=== PATIENT | male | born 1995 | race Caucasian/White ===

== ENCOUNTER 2022-10-15 14:19 | Emergency (ER) | payer OTHER, SELFPAY ==
[2022-10-15 14:58] VITALS: BP 123/74; PULSE 66; RESP 16; TEMP 36.7; O2SAT 96; BMI 26.6
--- NOTE | 2022-10-15 16:40 | ED.SOB ---
HPI - SOB/Dyspnea General Date Seen: 10/15/22 Chief Complaint: Shortness of Breath/Dyspnea Stated Complaint: Short of Breath Mucus in Lungs Time Seen by Provider: 10/15/22 15:50 Source: patient Mode of arrival: ambulatory Limitations: no limitations History of Present Illness HPI Narrative: Patient is the 27-year-old gentleman who presents to the emergency room for evaluation of cough, some wheezing in the morning. He feels that his mucus is increase then, he will be wheezing for few hours, he does not notice any shortness of breath, denies chest pain, leg swelling, passing out, or anything else. He has had no fevers or chills, and declined swabs according to the nurse. He has had his flu shot this year, and COVID shots. Immunizations are otherwise up-to-date, he has received an inhaler in the past he believes albuterol that helped a lot, and is just requesting that here today. This concern is been going on for at least 2-3 weeks. MD elicited complaint: shortness of breath and cough Pertinent past history: asthma Onset (ago): day(s) Timing: intermittent Severity: mild Associated symptoms: denies other symptoms Treatment prior to arrival: none Related Data Home oxygen amount: none Previous Rx's Medication Instructions Recorded albuterol sulfate 90 mcg/actuation 2 puff inhalation Q6H PRN 10/15/22 aerosol inhaler shortness of breath or wheezing #6.7 grams Allergies Allergy/AdvReac Type Severity Reaction Status Date / Time No Known Drug Allergies Allergy Verified 10/15/22 15:02 Review of Systems Status of ROS: Reports: 10 or more systems reviewed and unremarkable except as noted in History and below PFSH PFS Social History Smoking Status: Never smoker Do you use any of these nicotine containing products: Vaping Products Second hand tobacco smoke exposure: No How often do you have a drink containing alcohol: monthly or less How many standard drinks containing alcohol do you have on a typical day: 1 or 2 How often do you have six or more drinks on one occasion: Never AUDIT-C Alcohol total score: 1 Non-prescribed substance use: denies use Exam Narrative: Exam Narrative: Patient is seen in room 7 he is in no apparent distress his vital signs are reviewed and normal nontoxic, speaking to me in full sentences. Pupils equal round reactive to light there is no scleral icterus or redness noted, TMs are normal, oropharynx is normal nasal mucosa healthy, no lymphadenopathy anterior posterior chains of his neck, no meningismus, chest is good air entry in with no wheezing or crackles noted but on forced expiration he does have a few wheezes noted. Heart sounds are normal, no clicks murmurs or gallops S1-S2 is normal. Abdomen is soft and slightly obese, he has no organomegaly normal bowel sounds no tenderness to palpation skin reveals no petechiae or rashes neurologically intact in his upper lower extremities moving all extremities independently and well. Const: Vital Signs, click to edit/add: Vital Signs - 24 hr 10/15/22 14:58 Temperature 98.0 F Pulse Rate [Right Pulse Oximeter] 66 Respiratory Rate 16 Blood Pressure [Ri ght Upper Arm] 123/74 Pulse Oximetry 96 Course Course Hospital Course: Patient is seen in the ER, he is in no apparent distress he has normal vital signs with the low normal oxygen saturation. I think at the present time can use the albuterol MDI, that he has used in the past, I went over with him the risks benefits and side effects of worsening, he should follow up if these occur, he was more than happy with this. I do not think he needs further testing for any the viral etiologies currently is he really has no other symptoms. Vital Signs Vital signs: Initial Vital Signs Temperature 98.0 F 10/15/22 14:58 Temperature Source Temporal Artery Scan 10/15/22 14:58 Pulse Rate 66 10/15/22 14:58 Respiratory Rate 16 10/15/22 14:58 Blood Pressure 123/74 10/15/22 14:58 Blood Pressure Mean 90 10/15/22 14:58 Blood Pressure Position Sitting 10/15/22 14:58 Pulse Oximetry 96 10/15/22 14:58 Vital Signs Temperature 98.0 F 10/15/22 14:58 Pulse Rate 66 10/15/22 14:58 Respiratory Rate 16 10/15/22 14:58 Blood Pressure 123/74 10/15/22 14:58 Pulse Oximetry 96 10/15/22 14:58 Temperature 98.0 F 10/15/22 14:58 Pulse Rate 66 10/15/22 14:58 Respiratory Rate 16 10/15/22 14:58 Blood Pressure 123/74 10/15/22 14:58 Pulse Oximetry 96 10/15/22 14:58 MDM - SOB/Dyspnea MDM Narrative Medical decision making narrative: Life-threatening differential diagnosis includes occluded COPD exacerbation, pulmonary edema, acute coronary syndromes, pulmonary embolism, pneumonia, and pneumothorax. Other differential diagnosis considerations include asthma, bronchitis as well as other etiologies Medical Records Attestation: I reviewed the patient's medical records. Discharge Plan Discharge Clinical Impression: Wheezy Patient Disposition: Home, Self-Care Condition: Stable Instructions: Wheezing (ED) Additional Instructions: Home rest use of inhaler as needed, follow-up primary care, return if worsening shortness of breath signs and symptoms discussed. Prescriptions: New albuterol sulfate 90 mcg/actuation HFA aerosol inhaler 2 puff inhalation Q6H PRN (Reason: shortness of breath or wheezing) Qty: 6.7 0RF Follow Up/Referrals: Provider,Not a Local [Primary Care Provider] - Stand Alone Forms: [employer] Info Instructions
[2022-10-15 16:47] VITALS: BP 123/74; PULSE 66; RESP 16; TEMP 36.7
== END 2022-10-15 16:47 | disposition home or self-care (01) ==
PROVIDERS: Emergency Provider Family Medicine
DX: R06.2 Wheezing (principal)
CPT/HCPCS: 99283

== ENCOUNTER 2023-12-14 12:38 | Outpatient (CLI) | payer BC, SELFPAY | END 2023-12-14 12:39 | disposition home or self-care (01) | PROVIDERS: Visit Provider Family Medicine | DX: Z01.818 Encounter for other preprocedural examination (principal) | CPT/HCPCS: 80048; 85025 ==

== ENCOUNTER 2024-02-21 10:16 | Emergency (ER) | payer BC, SELFPAY ==
[2024-02-21 10:23] VITALS: BP 109/52; PULSE 61; RESP 18; TEMP 36.8; O2SAT 97; BMI 24.3
--- NOTE | 2024-02-21 10:41 | US_ITS ---
Patient: SABRINA MERCEDES Facility:?[facility] Patient ID:?[id number] Site Patient ID:?[id number]. Site :?1995 Study:?US-Testicle SCROTUM-02/21/2024 11:18:05 AM Ordering Physician:?SHAWNA BAHENA M.D. Final Report: Indication: Testicular pain. Technique: Ultrasound of the scrotum and contents. Sonographic scruggs-scale images were obtained with spectral and color Doppler waveform and spectral waveform analysis of the testicles. Comparison: None. Findings: Bother testicles are normal in size and echotexture. Right testicle measures 3.6 x 2.3 x 2.8 cm and left testicle measures 3.4 x 1.9 x 2.4 cm. No masses. No suspicious calcifications. Arterial and venous color Doppler blood flow and spectral waveforms are present in the left testicle arterial waveforms are right testicle. There appears to be slightly increased blood flow within the right testicle compared to the on comparison color Doppler images. Epididymis: Normal blood flow. There is a simple appearing left epididymal head cyst measuring 0.6 x 0.5 x 0.8 cm Other: No significant hydrocele. No sign of varicocele. Scrotal wall is normal. Impression: 1. Slight asymmetrically increased color Doppler blood flow within the right testicle. Recommend correlation with laterality of patient`s symptoms as findings are concerning for epididymitis. 2. Simple appearing left epididymal head cyst measuring 8 mm. Dictated by Vi Epps MD @ 02/21/2024 11:24:32 AM Signed by:?Vi Epps MD @02/21/2024 11:24:32 AM (Electronic Signature)
--- NOTE | 2024-02-21 10:42 | ED.GENADULT ---
HPI - General Adult General Chief complaint: Urogenital Problems, Male Stated complaint: testicle pain Time Seen by Provider: 02/21/24 10:31 History of Present Illness HPI narrative: This 29-year-old male comes in reporting testicular pain for the past couple days. He does not report any injury event or strenuous activity. He denies any sign of hernia symptoms. He does not report any symptoms of dysuria or fever. He states that the pain is dull in rather constant. He did have some anxiety related to this initially and states that he felt lightheaded and almost lost consciousness due to that anxiety. He does not report any personal or family history of kidney stones. He denies having any flank pain or abdominal pain except for some discomfort in lower abdomen related to his testicular pain. Related Data Previous Rx's Medication Instructions Recorded albuterol sulfate 90 mcg/actuation 2 puff inhalation Q6H PRN 10/15/22 aerosol inhaler shortness of breath or wheezing #6.7 grams hydrocodone 5 mg-acetaminophen 325 1 tab PO TID PRN pain #20 tabs 12/14/23 mg tablet ketorolac 10 mg tablet 10 mg PO Q8H 5 days #15 tabs 02/21/24 Allergies Allergy/AdvReac Type Severity Reaction Status Date / Time No Known Drug Allergies Allergy Verified 12/14/23 11:07 Review of Systems Status of ROS: Reports: 10 or more systems reviewed and unremarkable except as noted in History and below Narrative: Constitutional: No fevers, no weight gain or loss. Eyes: No discharge. No vision changes. HENT: No congestion, no sore throat, no ear pain. Cardiovascular: No chest pain, no palpitations. Respiratory: No shortness of breath, no wheezes, no cough. Gastrointestinal: No vomiting, no diarrhea. Genitourinary: No dysuria, no hematuria. Testicular pain as described above. Musculoskeletal: Normal range of motion. Skin: No rashes, no pruritis. Neurological: No dizziness, weakness, sensory change, speech change. Endo/Heme/Allergies: No bruising or bleeding. No polydipsia. Pysch: no suicidality, no anxiety, no insomnia. All other systems reviewed and are negative. 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 - Androgenic alopecia, unspecified (ICD-10) Allergic rhinitis ?J30.9 - Allergic rhinitis, unspecified (ICD-10) Surgical History (Updated 12/13/23 @ 15:34 by Amanda Bañuelos) History of appendectomy (2004) ?Z90.49 - Acquired absence of other specified parts of digestive tract (ICD-10) Family History (Updated 12/13/23 @ 15:35 by Amanda Bañuelos) Mother Breast cancer, Onset Age: 45 Father High blood pressure Social History (Updated 12/19/23 @ 04:01 by Mk Henriquez MD) Narrative: Single, no kids, works at [employer], social ETOH Smoking Status: Never smoker Do you use any of these nicotine containing products: Vaping Products Second hand tobacco smoke exposure: No How often do you have a drink containing alcohol: monthly or less How many standard drinks containing alcohol do you have on a typical day: 1 or 2 How often do you have six or more drinks on one occasion: Never AUDIT-C Alcohol total score: 1 Non-prescribed substance use: denies use Little interest or pleasure in doing things: not at all Feeling down, depressed, or hopeless: not at all Exam Narrative: Exam Narrative: Constitutional: Well-developed, well-nourished, no acute distress. HEENT: Normocephalic, atraumatic. Neck: Normal range of motion. Nontender. Supple. Heart: Regular. No murmurs. Normal rate. Intact distal pulses. Lungs: Clear to auscultation. No chest discomfort. No wheezes, rhonchi, or rales. Abdomen: Normal bowel sounds. Nontender. No rebound tenderness. Genitalia: Normal exam without any sign of erythema, edema, or swelling. Cremasteric reflexes intact. Back: No midline tenderness. Normal range of motion. Extremities: Normal range of motion. Left wrist is in a cast because of a wrist fracture. Skin: Intact. No rash. Warm. No erythema or pallor. Neurologic: No altered sensation. No weakness. Alert and oriented. Psychiatric: No suicidality. No anxiety or depression. No insomnia. Nursing notes and vitals signs are reviewed. Const: Vital Signs, click to edit/add: Vital Signs - 24 hr 02/21/24 10:23 Temperature 98.3 F Pulse Rate [Pulse Oximeter] 61 Respiratory Rate 18 Blood Pressure [Ri ght Upper Arm] 109/52 L Pulse Oximetry 97 Oxygen Delivery Me thod Room Air Course Vital Signs Vital signs: Initial Vital Signs Temperature 98.3 F 02/21/24 10:23 Temperature Source Temporal Artery Scan 02/21/24 10:23 Pulse Rate 61 02/21/24 10:23 Respiratory Rate 18 02/21/24 10:23 Blood Pressure 109/52 L 02/21/24 10:23 Blood Pressure Mean 71 02/21/24 10:23 Pulse Oximetry 97 02/21/24 10:23 Oxygen Delivery Method Room Air 02/21/24 10:23 Vital Signs Temperature 98.3 F 02/21/24 10:23 Pulse Rate 61 02/21/24 10:23 Respiratory Rate 18 02/21/24 10:23 Blood Pressure 109/52 L 02/21/24 10:23 Pulse Oximetry 97 02/21/24 10:23 Oxygen Delivery Method Room Air 02/21/24 10:23 Temperature 98.3 F 02/21/24 10:23 Pulse Rate 61 02/21/24 10:23 Respiratory Rate 18 02/21/24 10:23 Blood Pressure 109/52 L 02/21/24 10:23 Pulse Oximetry 97 02/21/24 10:23 Oxygen Delivery Method Room Air 02/21/24 10:23 Medical Decision Making [facility] Narrative Medical decision making narrative: This patient comes in reporting testicular pain over the past couple days. He states that it is rather constant and seems a bit worse when sitting down. Ultrasound of the scrotum shows no acute findings to explain his symptoms. There is some increased vascularity of the epididymis but the patient is nontender in this area. Urinalysis shows no sign of infection but there is some microscopic hematuria. The patient does not have any history of kidney stones a but given this finding and the location of his pain a CT scan of his abdomen is obtained and returns with no evidence of stone disease. This was all very reassuring to the patient. He possibly has some tenderness that may be related to the spermatic cord and ligaments is spending the testes. He received a prescription for Toradol. He is okay to be discharged home. Lab Data Labs: Lab Results 02/21/24 Range/Units Unknown Urine Color Yellow (Yellow) Urine Appearance Clear (Clear) Urine pH 5.5 (5.0-8.5) Ur Specific [place] 1.020 (1.000-1.030) Urine Protein Negative (Negative) Urine Glucose (UA) Negative (Negative) Urine Ketones Negative (Negative) Urine Blood Trace-intact A (Negative) Urine Nitrite Negative (Negative) Urine Bilirubin Negative (Negative) Urine Urobilinogen 0.2 (0.2-1.0) Ur Leukocyte Esterase Negative (Negative) Urine RBC 2-5 A (0-2) Urine WBC 2-5 (0-5) Ur Squamous Epith Cells Few (None-Few) Urine Bacteria None (None) Imaging Data US Scrotum: Radiologist's impression: 1. Slight asymmetrically increased color Doppler blood flow within the right testicle. Recommend correlation with laterality of patient`s symptoms as findings are concerning for epididymitis. 2. Simple appearing left epididymal head cyst measuring [address] scan - abdomen: Radiologist's impression: 1. No acute abnormality identified in the abdomen or pelvis. 2. Incidental note is made of a 1 cm cystic focus along the posterior aspect of the prostate, likely a mullerian duct cyst versus prostatic utricle cyst. No surrounding inflammatory changes are identified to suggest prostate abscess. Discharge Plan Discharge Clinical Impression: Pain in testicle Patient Disposition: Home, Self-Care Condition: Stable Additional Instructions: Take medication as needed and indicated. Activity as tolerated. Follow up with MD return if worsening. Prescriptions: New ketorolac 10 mg tablet 10 mg PO Q8H 5 Days Qty: 15 0RF No Action hydrocodone-acetaminophen 5-325 mg tablet 1 tab PO TID PRN (Reason: pain) Qty: 20 0RF albuterol sulfate 90 mcg/actuation HFA aerosol inhaler 2 puff inhalation Q6H PRN (Reason: shortness of breath or wheezing) Qty: 6.7 0RF Follow Up/Referrals: Mk Henriquez MD [Primary Care Provider] - Stand Alone Forms: [employer] Info Instructions
[2024-02-21 11:17] LABS: Appearance Urine Clear (Clear); Bilirubin Urine Negative (Negative); Blood Urine Trace-intact (Negative); Color Urine Yellow (Yellow); Glucose Urine Negative (Negative); Ketones Urine Negative (Negative); Leukocyte Esterase Urine Negative (Negative); Nitrite Urine Negative (Negative); Protein Urine Negative (Negative); Urobilinogen Urine 0.2 (0.2-1.0); pH Urine 5.5 (5.0-8.5)
[2024-02-21 11:41] LABS: Squamous Epithelial Cell Urine Few (None-Few)
--- NOTE | 2024-02-21 11:50 | CT_ITS ---
Patient: SABRINA MERCEDES Facility:?[facility] Patient ID:?[id number] Site Patient ID:?[id number]. Site :?1995 Study:?CT-Abdomen/Pelvis w/o-02/21/2024 12:04:20 PM Ordering Physician:?Adolfo Reyes Final Report: Indication: Lower abd/testicle pain, hematuria. Technique: CT of the abdomen and pelvis was performed without contrast. Comparison: Same-day scrotal ultrasound. Findings: Visualized lung bases: Clear. Liver: Unremarkable for unenhanced technique. Normal gallbladder. No biliary ductal dilation. Pancreas: Unremarkable for unenhanced technique. Spleen: Unremarkable for unenhanced technique. Adrenals: Unremarkable for unenhanced technique. Kidneys: Unremarkable for unenhanced technique. No nephrolithiasis or hydronephrosis. Aorta/IVC: Normal in caliber. Lymph nodes: No lymphadenopathy. Bowel: Nonobstructed bowel. Appendix is not definitively seen. No localized inflammatory changes. No intraperitoneal free air or fluid. Pelvis: 1 cm fluid attenuation cystic lesion along the posterior the prostate at the likely represents a mullerian duct cyst versus prostate utricle cyst. Otherwise unremarkable. Bones/body wall: Mild chronic appearing anterior wedging at T10 with moderate degenerative disc disease at T10-T11. Impression: 1. No acute abnormality identified in the abdomen or pelvis. 2. Incidental note is made of a 1 cm cystic focus along the posterior aspect of the prostate, likely a mullerian duct cyst versus prostatic utricle cyst. No surrounding inflammatory changes are identified to suggest prostate abscess. Please note that all CT scans at this facility use dose modulation, iterative reconstruction, and/or weight-based dosing when appropriate to reduce radiation dose to as low as reasonably achievable. Dictated by Vi Epps MD @ 02/21/2024 12:25:37 PM Signed by:?Vi Epps MD @02/21/2024 12:25:37 PM (Electronic Signature)
== END 2024-02-21 13:12 | disposition home or self-care (01) ==
PROVIDERS: Emergency Provider Emergency Medicine Emergency Medical Services; PCP Family Medicine
DX: N50.812 Left testicular pain (principal); N50.811 Right testicular pain
CPT/HCPCS: 74176; 76870; 81001; 93976; 99284

== ENCOUNTER 2024-03-12 15:50 | Outpatient (CLI) | payer BC, SELFPAY | END 2024-03-12 15:51 | disposition home or self-care (01) | LOC: FBOREF 15:51 | PROVIDERS: PCP Family Medicine; Visit Provider Family Medicine | DX: Z13.220 Encounter for screening for lipoid disorders (principal) | CPT/HCPCS: 80061 ==